=== PATIENT | male | born 1970 | race Caucasian/White ===

== ENCOUNTER 2016-06-29 14:41 | Emergency (ER) | payer SELFPAY ==
--- NOTE | 2016-07-07 09:05 | ER ---
ADMIT: 06/29/2016 RM/LOC: ER [facility] MR#: [id number] [id number] BRENDA BATRES Ivone [address] [place] [address] Emergency Room Report SEX: M AGE: 45 : 1970 DATE: 06/29/2016 CHIEF COMPLAINT: Injury to bilateral legs. HISTORY OF PRESENT ILLNESS: This is a pleasant 45-year-old, white male, who presents to the ER after sustaining injury at [facility] about an hour prior to arrival. The patient states he was doing hand stand on some playground equipment showing off for his girlfriend when he lost his balance and caught his legs on the edge of the metal equipment. He states he has somewhat of an abrasion on his left lower leg and a cut on his right lower leg. Mild amount of pain. He is able to bear weight. He denies any other injuries. PAST MEDICAL HISTORY: Bipolar disorder. COURSE IN THE EMERGENCY ROOM: The patient was seen and examined. He is afebrile. No acute distress. He does have a 4 cm linear laceration to the right lower leg as well as an abrasion to the left lower leg. No involvement of the foot or ankle. He has normal range of motion. No swelling. Neurovascularly intact compared bilaterally in the lower extremities. He is able to ambulate into the department today. Skin is otherwise warm and dry. PROCEDURE REPAIR: Laceration repair. This is a 4 cm linear laceration on the right anterior lower leg. There is no obvious gross examination. He is neurovascularly intact prior to anesthesia. The wound was anesthetized with 5 mL of lidocaine a field block fashion. It was cleaned thoroughly with Betadine and irrigated with saline. The wound was explored to base in a bloodless field. No obvious foreign bodies. It was repaired using six 4-0 Prolene sutures. Wound edges were well everted. Dressing was applied. He was also updated on his tetanus prior to discharge today. IMPRESSION: 1. Laceration right anterior lower leg. ADMIT: 06/29/2016 RM/LOC: ER [facility] MR#: [id number] [id number] MEDARDO BRENDA J [address] [place] [address] Emergency Room Report SEX: M AGE: 45 : 1970 2. Abrasion left anterior lower leg. DISPOSITION: The patient is to follow up with Dr. Rob Caro in 10 days to have the sutures removed. Monitor the wound for any increased redness, pain, drainage, follow up with Dr. Caro sooner with any concerns of infection. Wash daily with warm soapy water. Do not submerge in any bath tubs, pools, hot tubs. Activity as tolerated. Certainly return with any worsening signs or symptoms. Tylenol or Motrin as needed for pain. Apply ice as needed for pain. Keep clean and dry. Covered for the next 24 hours. Change bandage daily thereafter. Questions sought and answered to the best of my ability and to the patient's satisfaction. Discharged to follow up with Dr. Caro in 10 days in stable condition. RUTHANN Fountain / James Strange MD / tingl JOB #: [id number] CC: James Strange MD, Attending Physician Jd Caro MD, Family Physician
== END 2016-06-29 15:34 | disposition home or self-care (01) ==
LOC: ER 14:41
PROC: 0HQKXZZ Repair Right Lower Leg Skin, External Approach (ICD-10-PCS; principal; 2016-06-29)
DX: S81.811A Laceration without foreign body, right lower leg, initial encounter (principal); S80.812A Abrasion, left lower leg, initial encounter; F31.9 Bipolar disorder, unspecified; W01.198A Fall on same level from slipping, tripping and stumbling with subsequent striking against other object, initial encounter; Y92.830 Public park as the place of occurrence of the external cause